=== PATIENT | female | born 1960 | race Caucasian/White ===

== ENCOUNTER → 2024-01-12 09:52 | Outpatient (REF) | payer OTHER, SELFPAY | LOC: WDC 09:52 | PROVIDERS: ATTENDING PHYSICIAN Nurse Practitioner | DX: R92.2 Inconclusive mammogram (principal) | CPT/HCPCS: 76641 ==

== ENCOUNTER 2025-01-19 09:18 | Emergency (ER) | payer OTHER, SELFPAY ==
[2025-01-19 09:30] VITALS: BP 175/93
[2025-01-19 09:53] LABS: % Basophils 0.1 % (0-2); % Immature Granulocytes 0.6 % (0-0.5); % Lymphocytes 7.2 % (20.5-51.1); % Monocytes 3.8 % (1.7-9.3); % Neutrophils 88.3 % (42.2-75.2); Absolute Immature Granulocytes 0.1 10^3/uL (0-0.05); Absolute Monocytes 0.6 10^3/uL (0.1-0.6); Absolute Neutrophils 12.6 10^3/uL (1.4-6.5); Hematocrit 40.7 % (37.0-47.0); Mean Corp Hgb Conc. 34.4 g/dL (33.0-37.0); Mean Corpuscular Hgb 28.8 pg (27.0-31.0); Mean Corpuscular Volume 83.7 fL (81.0-99.0); Mean Platelet Volume 10.2 fL (7.4-10.4); Nucleated Red Blood Cells % 0 %; Platelet Count 262 10^3/uL (130-400); Red Blood Cell Count 4.86 10^6/uL (4.20-5.40); Red Cell Dist. Width 13.2 % (11.5-14.5); White Blood Cell Count 14.3 10^3/uL (4.8-10.8)
[2025-01-19 10:08] LABS: ALT (SGPT) 29 U/L (0-35); AST (SGOT) 27 U/L (14-36); Albumin 4.5 g/dl (3.5-5.0); Alkaline Phosphatase 82 U/L (38-126); Blood Urea Nitrogen 28 mg/dl (7-17); Calcium 10.3 mg/dl (8.4-10.2); Carbon Dioxide 22 mmol/L (22-30); Chloride 105 mmol/L (98-107); Glucose 131 mg/dl (70-99); Lipase 92 U/L (23-300); Potassium 4.2 mmol/L (3.5-5.1); Sodium 137 mmol/L (135-145); Total Bilirubin 0.6 mg/dl (0.2-1.3); Total Protein 7.4 g/dl (6.3-8.2); eGFR > 60.00
[2025-01-19 12:00] VITALS: BP 144/91
[2025-01-19 12:25] VITALS: BMI 29.2
[2025-01-19 13:00] VITALS: BP 145/85
[2025-01-19 14:10] VITALS: BP 163/90
[2025-01-19 15:00] VITALS: BP 149/84
--- NOTE | 2025-01-19 15:25 | ED.GENMED ---
History of Present Illness
General
Chief Complaint: Abdominal Pain
Source: patient
Exam Limitations: none
Time Seen by Provider: 01/19/25 12:17
History of Present Illness
History of Present Illness:
64-year-old female presents with severe right upper quadrant pain that began this morning around 8 AM. She states the pain on my examination has resolved. She states it resolved essentially shortly after arriving. The patient does admit that she
had missed her GLP-1 injection for 2 weeks and restarted it yesterday at the same dose she had to stop that. Patient denies any nausea or vomiting. She states she has had pain like this 1 other time some years ago. The pain is since completely
resolved. No fevers. No vomiting. No diarrhea. No hematochezia. No melena.
Past History
Past History
ED Past Medical History: Hypercholesterolemia
ED Past Surgical History: Orthopedic
Social History
Tobacco: Former smoker
Alcohol: Occasional
Drug: None
Personal: Single
Living: alone
Employment: Employed
Phy Exam
Physical Exam
Physical Exam:
CONSTITUTIONAL Patient alert and oriented to person, place and time. Well-appearing. Vital signs reviewed.
HEAD atraumatic, normocephalic.
EYES eyelids normal to inspection, Extraocular muscles intact, Conjunctiva normal, Sclera normal.
NECK normal range of motion, Trachea midline, no jugular venous distention.
RESPIRATORY CHEST No respiratory distress noted, Chest expansion equal, Bilateral breath sounds clear.
CARDIOVASCULAR regular rate and rhythm, Heart sounds normal.
ABDOMEN abdomen nontender, Bowel sounds normal. No distention.
BACK normal inspection, no obvious deformities
UPPER EXTREMITY range of motion normal, Motor strength normal, no cyanosis, no edema.
LOWER EXTREMITY range of motion normal, Motor strength normal, no cyanosis, no edema.
NEURO Speech normal, No focal motor deficits, Marshall coma scale 15, Memory normal, Cranial Nerves intact to screening exam.
SKIN skin warm, dry, and normal in color.
Course
Orders/Labs/Results
Orders:
Orders
01/19/25 09:33
Electrocardiogram (*1) Urgent
Reason for Study: Abdominal Pain
EKG- Treatment ONCE
01/19/25 09:41
Complete Blood Count/With Diff Urgent
Comprehensive Metabolic Panel Urgent
Lipase Urgent
01/19/25 13:00
US Abdomen Complete/Upper Urgent
Reason For Exam: RUQ abd pain
Abnormal Lab Results
01/19/25
09:41
WBC 14.3 H 10^3/uL
(4.8-10.8)
Abs Immat Gran (auto) 0.1 H 10^3/uL
(0-0.05)
Absolute Neuts (auto) 12.6 H 10^3/uL
(1.4-6.5)
Absolute Lymphs (auto) 1.0 L 10^3/uL
(1.2-3.4)
Immature Gran % 0.6 H %
(0-0.5)
Neutrophils % 88.3 H %
(42.2-75.2)
Lymphocytes % 7.2 L %
(20.5-51.1)
BUN 28 H mg/dl
(7-17)
Glucose 131 H mg/dl
(70-99)
Calcium 10.3 H mg/dl
(8.4-10.2)
01/19/25 09:41
01/19/25 09:41
Vital Signs
Initial and Last Documented VS:
Initial Vital Signs
Temp Pulse Resp BP Pulse Ox
97.5 F 64 16 175/93 100
01/19/25 09:30 01/19/25 09:30 01/19/25 09:30 01/19/25 09:30 01/19/25 09:30
Last Documented Vital Signs
Temp Pulse Resp BP Pulse Ox
97.5 F 64 16 149/84 99
01/19/25 09:30 01/19/25 09:30 01/19/25 09:30 01/19/25 15:00 01/19/25 15:01
MDM/Problems Addressed
Differential Diagnosis Includes:
Cholecystitis, cholelithiasis, pancreatitis, duodenitis, appendicitis, bowel obstruction, GLP-1 side effect
MDM/Problems Addressed:
Abdominal pain
*Pulse Oximetry
Patient hypoxic: no
*EKG
Interpreted by ED Provider?: Yes
Interpretation: normal
Rate: bradycardiac
Rhythm: sinus
[place]: normal axis
Interval: normal interval
QRS Pattern: normal QRS
Ischemia: no ischemia
*Critical Care Note
Total Time (30-74mins, 75-104mins- exclusive of procedures): Not Applicable
Data Reviewed
Source: patient
Further Testing Considered But Not Given:
Consider CT abdomen but patient reports symptoms have completely resolved
Patient Management
Escalation/DeEscalation of care consider admission/obs:
Ultrasound negative. Patient appears well and no further symptoms. Question whether this could be related to taking her semaglutide at a high dose after missing it for 2 weeks. Okay for discharge and outpatient follow-up. Return for worsening
symptoms. No AAA by ultrasound
ED Attending Note
-
Portions of this chart may have been created with voice recognition software.� Occasional wrong word or��sound alike� substitutions may have occurred due to the inherent limitations of voice recognition software.
Discharge Plan
Departure
Patient Disposition: Home (Routine Discharge)
Date of Disposition: 01/19/25
Time of Disposition: 15:25
Patient with high blood pressure during this ER visit?: Yes
Discharge Problem:
Abdominal pain
Instructions: Abdominal Pain
Prescriptions:
No Action
escitalopram oxalate 10 MG tablet
10 mg PO DAILY
Referrals:
Vesta Joe DO [Family Provider] -
Activity Restrictions/Additional Instructions:
Please see your doctor in follow-up in next 3 to 5 days. Consider lowering your dose of semaglutide on next dosing. Return immediately for intractable vomiting, worsening pain, fevers or any other concerns.
Interventions
Interventions:
*Risk Screen - Suicide Last Done: 01/19/25 09:32
*Neglect/Abuse Screening Last Done: 01/19/25 09:32
*ED COVID-19 Vaccine History Last Done: 01/19/25 12:25
*Nursing Disposition Last Done: 01/19/25 15:43
JP-Ufmxzz-Hkvoqngckw Assessment Last Done: 01/19/25 12:25
Discharge Date and Time
Discharge Date/Time: 01/19/25 15:44
Print Language: SRI LANKAN
== END 2025-01-19 15:44 | disposition home or self-care (01) ==
LOC: EMR 09:18
PROVIDERS: EMERGENCY PHYSICIAN Emergency Medicine; FAMILY PHYSICIAN Internal Medicine
DX: R10.11 Right upper quadrant pain (principal); E78.00 Pure hypercholesterolemia, unspecified; Z87.891 Personal history of nicotine dependence
CPT/HCPCS: 99284; 76700; 80053; 83690; 85025; 93005